=== PATIENT | female | born 2000 | race Caucasian/White ===

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

== ENCOUNTER 2019-06-11 18:19 | Emergency (ER) | payer OTHER ==
[~2019-06-11] VITALS: Ht 165.1 cm; Wt 49.9 kg
[2019-06-11 18:19] VITALS: BP 120/78
== END 2019-06-11 19:54 | disposition home or self-care (01) ==
LOC: ER 18:25
DX: J40 Bronchitis, not specified as acute or chronic (principal)
CPT/HCPCS: 71045-TC

== ENCOUNTER 2020-04-08 15:56 | Emergency (ER) | payer OTHER ==
[~2020-04-08] VITALS: Ht 160 cm; Wt 51.3 kg
[2020-04-08 16:04] VITALS: BP 122/71
--- NOTE | 2020-04-08 16:06 | NUR ---
PT CAME TO THE ER C/O FEVER, SORE THROAT, LOSS OF TASTE AND SMELL X 3 DAYS. 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 PT AAOX4, VSS, RESPIRATIONS EVEN AND UNLABORED ON RA W/ NAD NOTED. PT CONNECTED TO THE SENIOR INTEGRATION DEVELOPER AND POX
--- NOTE | 2020-04-08 16:15 | NUR ---
ANJEL SHAH AT BEDSIDE FOR EVAL
--- NOTE | 2020-04-08 16:23 | NUR ---
CALLED RADIOLOGY REGARDING XRAY
--- NOTE | 2020-04-08 16:25 | NUR ---
CALLED LAB FOR COVID SWAB
--- NOTE | 2020-04-08 16:28 | NUR ---
XRAY AT BEDSIDE
--- NOTE | 2020-04-08 16:37 | NUR ---
RAPID STREP SENT TO LAB
--- NOTE | 2020-04-08 16:54 | NUR ---
COVID SWAB COLLECTED AND SENT TO LAB
--- NOTE | 2020-04-08 17:06 | NUR ---
Patient discharged to home in stable condition. Written and verbal after care instructions given. Patient verbalizes understanding of instruction.
== END 2020-04-08 17:07 | disposition home or self-care (01) ==
LOC: ER 16:01
DX: U07.1 COVID-19 (principal); R43.9 Unspecified disturbances of smell and taste
CPT/HCPCS: 71045; 87070; 87880; 99284; C9803; U0003; 86403-TC

== ENCOUNTER 2020-10-31 07:10 | Emergency (ER) | payer OTHER ==
[~2020-10-31] VITALS: Ht 160 cm; Wt 52.6 kg
--- NOTE | 2020-10-31 07:16 | NUR ---
BIB SELF C/O R THUMB PAIN STARTED LAST NIGHT "I TRIED TO STOP THE DOOR FROM FALLING AND HURT MY THUMB." PATIENT A/OX4, BREATHING EVEN AND UNLABORED, NO SOB NOTED. NEEDS ATTENDED.
[2020-10-31] MEDS ORDERED: IBUP-1957 PO (08:18)
--- NOTE | 2020-10-31 08:25 | NUR ---
Patient discharged to home in stable condition. Written and verbal after care instructions given. Patient verbalizes understanding of instruction.
[2020-10-31 08:26] VITALS: BP 120/70
== END 2020-10-31 08:26 | disposition home or self-care (01) ==
LOC: ER 07:14
DX: S63.641A Sprain of metacarpophalangeal joint of right thumb, initial encounter (principal); S53.441A Ulnar collateral ligament sprain of right elbow, initial encounter; W01.0XXA Fall on same level from slipping, tripping and stumbling without subsequent striking against object, initial encounter; Y93.89 Activity, other specified; Y92.89 Other specified places as the place of occurrence of the external cause; Y99.8 Other external cause status
CPT/HCPCS: 73130-TC

== ENCOUNTER 2021-03-07 01:17 | Emergency (ER) | payer OTHER ==
[~2021-03-07] VITALS: Ht 160 cm; Wt 59.0 kg
[~2021-03-07 01:17] MED LIST: IBUP-1957 PO
[2021-03-07 01:26] VITALS: BP 99/75
--- NOTE | 2021-03-07 01:26 | NUR ---
BIBSELF FROM HOME C/O NOSE BLEED FOR THE PAST 3x DAYS. HAD 10 EPISODES. "WHEN I GOT HERE IT STOPPED" HAD RHINOPLASTY 2x WEEKS AGO. A/OX4. DENIES DIFFICULTY BREATHING
--- NOTE | 2021-03-07 01:50 | NUR ---
PROVIDED DISCHARGE INSTRUCTIONS.
--- NOTE | 2021-03-07 01:50 | NUR ---
Patient discharged to home in stable condition. Written and verbal after care instructions given. Patient verbalizes understanding of instruction.
== END 2021-03-07 01:50 | disposition home or self-care (01) ==
LOC: ER 01:17
DX: R04.0 Epistaxis (principal); Z98.890 Other specified postprocedural states; Z88.0 Allergy status to penicillin; Z88.1 Allergy status to other antibiotic agents